=== PATIENT | male | born 1995 | race Caucasian/White ===

== ENCOUNTER 2020-05-27 17:42 | Emergency (ER) | payer OTHER ==
[~2020-05-27 17:42] MED LIST: DICLOFENAC SODI75 MG PO
== END 2020-05-28 02:30 | disposition home or self-care (01) ==
LOC: FER 17:42
DX: J32.9 Chronic sinusitis, unspecified (principal); F17.290 Nicotine dependence, other tobacco product, uncomplicated; Z87.09 Personal history of other diseases of the respiratory system
CPT/HCPCS: 94640; 94664

== ENCOUNTER → 2021-01-15 | Day surgery (SDC) | payer OTHER ==
[~2021-01-15] VITALS: Ht 175.3 cm; Wt 83.9 kg
[~2021-01-15] MED LIST changes: +ALEVE220 MG PO
[2021-01-15 09:09] LABS: HGB 15.8 g/dl (13.2-18.0); MCH 30.9 pg (25.0-31.0); MCHC 33.6 g/dL (32.0-36.0); MCV 91.8 fL (78.0-100.0); MPV 10.5 fL (6.0-9.5); RBC 5.12 M/uL (4.70-6.00); RDW 11.9 % (11.5-14.0); WBC 7.8 K/uL (4.0-10.5)
[2021-01-15 09:29] LABS: ALBUMIN 3.8 g/dL (3.4-5.0); BILIRUBIN - TOTAL 0.3 mg/dL (0.2-1.0); BUN/CREAT RATIO (CALC) 13.2 RATIO; CREATININE 1.29 mg/dL (0.67-1.17); GLOBULIN (CALCULATION) 3.2 g/dL; POTASSIUM 3.8 mmol/L (3.5-5.1)
== END | disposition home or self-care (01) ==
LOC: FAS 08:19
PROVIDERS: Surgery
DX: K29.50 Unspecified chronic gastritis without bleeding (principal); K21.9 Gastro-esophageal reflux disease without esophagitis; K63.89 Other specified diseases of intestine; K92.1 Melena; K50.90 Crohn's disease, unspecified, without complications; K27.9 Peptic ulcer, site unspecified, unspecified as acute or chronic, without hemorrhage or perforation; K90.0 Celiac disease; F31.9 Bipolar disorder, unspecified; F98.8 Other specified behavioral and emotional disorders with onset usually occurring in childhood and adolescence; Z87.891 Personal history of nicotine dependence
CPT/HCPCS: 36415; 80053; J1610; J2250; J2704; J7120